=== PATIENT | female | born 1985 | race Caucasian/White ===

== ENCOUNTER 2023-02-20 07:14 | Outpatient (RCR) | payer OTHER, SELFPAY | END 2023-03-18 13:45 | disposition home or self-care (01) | LOC: PT 07:14 | PROVIDERS: PCP Nurse Practitioner Family; Visit Provider Nurse Practitioner Family | DX: T14.8XXA Other injury of unspecified body region, initial encounter (principal); R29.3 Abnormal posture; M50.123 Cervical disc disorder at C6-C7 level with radiculopathy; M50.122 Cervical disc disorder at C5-C6 level with radiculopathy | CPT/HCPCS: 97012; 97110; 97112; 97140; 97161; 97530 ==

== ENCOUNTER 2023-03-27 12:26 | Emergency (ER) | payer OTHER, SELFPAY ==
[2023-03-27 12:31] VITALS: BP 150/94; PULSE 98; RESP 16; TEMP 36.4; BMI 26.6
--- NOTE | 2023-03-27 13:06 | XR_ITS ---
[address] [address] Patient Name: DANUTA DONG MRN: [id number] date: 1985 Sex: F Assigned Patient Location: ER Current Patient Location: ER Accession/Order Number: [id number] Exam Date: 03/27/2023 13:15 Report Date: 03/27/2023 13:42 At the request of: LISSETT AMATO Procedure: XR lumbar spine 2-3V EXAM: XR lumbar spine 2-3V HISTORY: low back pain COMPARISON: None. TECHNIQUE: 2 views FINDINGS: Satisfactory alignment. Maintained vertebral body heights and disc spaces. No acute fracture or subluxation. Unremarkable soft tissues. IMPRESSION: Unremarkable exam. Electronically authenticated by: NANDO MELCHOR Date: 03/27/2023 13:42
[2023-03-27] MEDS: KETOROLAC TROMETHAMINE 60 MG/2 ML VIAL IM (13:17)
[2023-03-27] MEDS: METHYLPREDNISOLONE SOD SUCC PF 125 MG/2 ML VIAL IM (13:17)
--- NOTE | 2023-03-27 13:28 | ED_ITS ---
HPI - Back Pain/Injury General Chief Complaint: Back Pain/Injury Stated Complaint: BACK PAIN Time Seen by Provider: 03/27/23 12:39 Source: patient Mode of arrival: Wheelchair Limitations: no limitations History of Present Illness HPI Narrative: suddenly felt pain along the lumbosacral junction when she stood up out of a chair yesterday. Pain is moderate and non-radiating. No recent injury or heavy lifting to cause the pain. She has thoracic back pain for which she has been seeing rakesh see and is scheduled to get an MRI. She has not had pain in this area before, she told me. No bowel or bladder dysfunction. No flank pain or urinary symptoms. No relief with OTC meds Related Data Previous Rx's Medication Instructions Recorded methocarbamol 750 mg tablet 750 mg PO Q6H PRN back pain #20 03/27/23 tabs nabumetone 750 mg tablet 750 mg PO BID #14 tabs 03/27/23 prednisone 20 mg tablet 20 mg PO DAILY #9 tabs 03/27/23 Allergies Allergy/AdvReac Type Severity Reaction Status Date / Time No Known Drug Allergies Allergy Verified 03/27/23 12:31 [facility] Social History Smoking status: Former smoker Exam Narrative Exam Narrative: General: Alert, no acute distress, patient resting comfortably Skin: warm, intact, no pallor noted Head: Normocephalic, atraumatic Eye: Normal conjunctiva Respiratory: No acute distress Abdomen: Normal bowel sounds, soft, nontender, no masses detected. No rebound, guarding, or rigidity noted. Back: inspection of the back shows no obvious deformity, no swelling, no ecchymosis, contusion, abrasion, swelling, erythema, fluctuance or induration. No tenderness at the lumbar spine, sacrum or coccyx. Straight leg raise on left is positive. Straight leg raise on right is positive. No CVA tenderness noted bilaterally. Musculoskeletal: No deformity noted to bilateral lower extremities. no cyanosis or mottling noted. normal pulses at DP and PT 2+ bilaterally and symmetrically. Normal 5/5 strength at ankles with dorsiflexion and plantar flexion. Patient is able to ambulate. Normal sensation noted to both lower extremities. Neurological: AAOx4, normal sensory and motor observed. L5-S1 reflexes intact symmetrically. DTR 2+ at patellar bilaterally. Psychiatric: Cooperative and interactive. Constitutional Vital Signs - 24 hr 03/27/23 12:31 Temperature 97.6 F Pulse Rate [Monitor] 98 H Respiratory Rate 16 Blood Pressure [Right Arm] 150/94 H Course Vital Signs Vital signs: Vital Signs Temperature 97.6 F 03/27/23 12:31 Pulse Rate 98 H 03/27/23 12:31 Respiratory Rate 16 03/27/23 12:31 Blood Pressure 150/94 H 03/27/23 12:31 Temperature 97.6 F 03/27/23 12:31 Pulse Rate 98 H 03/27/23 12:31 Respiratory Rate 16 03/27/23 12:31 Blood Pressure 150/94 H 03/27/23 12:31 MDM - Back Pain/Injury MDM Narrative Medical decision making narrative: patient received IM Solu-Medrol and IM Toradol and sent for x-rays of the lumbar spine. X-rays were unremarkable. I viewed them in the radiologist's detailed interpretation as noted below. The patient was informed of results, diagnosis was discussed she was discharged home with a prescription for Medrol Dosepak, Robaxin and Relafen prescriptions. She'll follow-up with her primary care provider Imaging Data xr lumbar spine: Radiologist's impression: Patient Name: DANUTA DONG MRN: [facility]:[id number] date: 1985 Sex: F Assigned Patient Location: ER Current Patient Location: ER Accession/Order Number: [id number] Exam Date: 03/27/2023 13:15 Report Date: 03/27/2023 13:42 At the request of: LISSETT AMATO Procedure: XR lumbar spine 2-3V EXAM: XR lumbar spine 2-3V HISTORY: low back pain COMPARISON: None. TECHNIQUE: 2 views FINDINGS: Satisfactory alignment. Maintained vertebral body heights and disc spaces. No acute fracture or subluxation. Unremarkable soft tissues. IMPRESSION: Unremarkable exam. Electronically authenticated by: NANDO MELCHOR Date: 03/27/2023 13:42 Discharge Plan Discharge Chief Complaint: Back Pain/Injury Clinical Impression: Strain of lumbar region Patient Disposition: Home, Self-Care Time of Disposition Decision: 14:02 Prescriptions / Home Meds: New prednisone 20 mg tablet 20 mg PO DAILY Qty: 9 0RF Rx Instructions: take two tabs daily for 3 days then 1 tab daily for 3 days nabumetone 750 mg tablet 750 mg PO BID Qty: 14 0RF methocarbamol 750 mg tablet 750 mg PO Q6H PRN (Reason: back pain) Qty: 20 0RF Instructions: Acute Low Back Pain (ED) Stand Alone Forms: Portal Instructions Referrals: BLOSSOM SEE [Primary Care Provider] - 1 week
== END 2023-03-27 14:21 | disposition home or self-care (01) ==
PROVIDERS: Emergency Provider Emergency Medicine; PCP Nurse Practitioner Family
DX: S39.012A Strain of muscle, fascia and tendon of lower back, initial encounter (principal); X50.9XXA Other and unspecified overexertion or strenuous movements or postures, initial encounter; Z87.891 Personal history of nicotine dependence
CPT/HCPCS: 72100; 96372; 99284; J2930

== ENCOUNTER 2023-04-06 09:50 | Outpatient (OUT) | payer OTHER, SELFPAY ==
--- NOTE | 2023-04-06 09:59 | MR_ITS ---
The [address] [address] Patient Name: DANUTA DONG MRN: [facility]:[id number] date: 1985 Sex: F Assigned Patient Location: MRI Current Patient Location: .[facility] Accession/Order Number: [id number] Exam Date: 04/06/2023 10:26 Report Date: 04/06/2023 19:53 At the request of: JANET XIONG Procedure: MR cervical spine wo con EXAMINATION: MR cervical spine wo con HISTORY: Cervicalgia M54.2 COMPARISON: No relevant comparison available. TECHNIQUE: A variety of imaging planes and parameters were utilized for visualization of suspected pathology. FINDINGS: CRANIOCERVICAL AREA: Normal foramen magnum with no Chiari malformation. PARASPINAL AREA: Normal with no visible mass. BONES: Normal alignment with no acute fracture or spondylolisthesis. No bone edema CORD: Normal caliber, contour, and signal intensity. CERVICAL DISC LEVELS: C2-C3: No significant disc/facet abnormality, spinal stenosis, or foraminal stenosis. C3-C4: Right foraminal disc protrusion extending up to 2.5 mm. No central or foraminal stenosis C4-C5: Mild posterior central disc protrusion with annular tear extending to millimeters. No central or foraminal stenosis C5-C6: Mild disc space narrowing and disc desiccation. Moderate posterior disc/osteophyte complex. Narrowing of central canal to 8.5 mm. Mild bilateral foraminal stenosis C6-C7: Disc space narrowing. Moderate diffuse disc/osteophyte complex most significant on the left neural foramen. No central canal stenosis. Moderate bilateral foraminal stenosis C7-T1:. No significant disc/facet abnormality, spinal stenosis, or foraminal stenosis. MR/MR cervical spine wo con IMPRESSION: Degenerative changes resulting in bilateral mild C5-C6 and moderate C6-C7 foraminal stenosis Electronically authenticated by: FLORENTINO DANIEL Date: 04/06/2023 19:53
== END 2023-04-06 09:51 | disposition home or self-care (01) ==
LOC: MRI 09:51
PROVIDERS: PCP Nurse Practitioner Family; Visit Provider Family Medicine
DX: M54.2 Cervicalgia (principal)
CPT/HCPCS: 72141